=== PATIENT | male | born 1985 | race Two or more races ===

== ENCOUNTER 2016-06-15 06:43 | Emergency (ER) | payer BC ==
[~2016-06-15] VITALS: Ht 182.9 cm; Wt 72.6 kg
[2016-06-15 07:17] VITALS: BP 131/71
[2016-06-15] MEDS ORDERED: TDAP [DIPH/PERTUSSIS/TET] 0.5 ML VIAL IM ONE (07:43)
[2016-06-15] MEDS ORDERED: ACETAMINOPHEN 325 MG TABLET ONE (07:43)
[2016-06-15] MEDS ORDERED: LIDOCAINE HCL/PF 1% 30 ML SDV ONE (07:47)
[2016-06-15] MEDS: ACETAMINOPHEN ES 500 MG TABLET PO ONE (07:49)
[2016-06-15] MEDS: TDAP [DIPH/PERTUSSIS/TET] 0.5 ML VIAL IM ONE (07:49)
[2016-06-15] MEDS: LIDOCAINE HCL/PF 1% 30 ML VIAL TP ONE (07:50)
== END 2016-06-15 10:05 | disposition home or self-care (01) ==
LOC: ER 06:51
DX: S92.591A Other fracture of right lesser toe(s), initial encounter for closed fracture (principal); S91.114A Laceration without foreign body of right lesser toe(s) without damage to nail, initial encounter; W20.8XXA Other cause of strike by thrown, projected or falling object, initial encounter; Y93.89 Activity, other specified; Y92.89 Other specified places as the place of occurrence of the external cause; Y99.8 Other external cause status
CPT/HCPCS: 73630-TC; 90715; A4606; J3490; Z7610

== ENCOUNTER 2016-06-17 12:48 | Emergency (ER) | payer BC ==
[~2016-06-17] VITALS: Ht 182.9 cm; Wt 68.0 kg
[2016-06-17 13:23] VITALS: BP 133/67
== END 2016-06-17 14:54 | disposition home or self-care (01) ==
LOC: ER 12:49
DX: Z48.00 Encounter for change or removal of nonsurgical wound dressing (principal)
CPT/HCPCS: 99282; A4606; Z7610